=== PATIENT | male | born 1990 | race Hispanic/Latino ===

== ENCOUNTER 2024-01-13 13:05 | Emergency (ER) | payer OTHER ==
[~2024-01-13] VITALS: Ht 165.1 cm; Wt 121.6 kg
[2024-01-13] MEDS: ACETAMINOPHEN 500 MG TABLET PO ONE (13:32)
[2024-01-13 13:51] LABS: RAPID GROUP A STREP negative (NEGATIVE)
[2024-01-13 13:54] LABS: SARS-CoV-2, RNA, NAAT POSITIVE SARS CoV-2 (NEGATIVE)
[2024-01-13 14:01] LABS: INFLUENZA TYPE A Negative For Type A (NEGATIVE); INFLUENZA TYPE B Negative For Type B (NEGATIVE)
[2024-01-13] MEDS: KETOROLAC 60 MG VIAL (30MG/ML) IM ONE (14:08)
[2024-01-13] MEDS: ONDANSETRON ODT 4MG TAB SL ONE (14:09)
[2024-01-13 14:36] VITALS: TEMP 98.8
[2024-01-13 14:40] VITALS: BP 121/76; PULSE 78; RESP 18; O2SAT 98
[2024-01-13] MEDS ORDERED: ONDA-243 PO (14:41)
== END 2024-01-13 14:49 | disposition home or self-care (01) ==
LOC: EDH 13:05
DX: U07.1 COVID-19 (principal)
CPT/HCPCS: 99283; 87635; 87880; 87804 ×2; 96372; J1885